=== PATIENT | male | born 1970 | race Hispanic/Latino ===

== ENCOUNTER → 2024-11-01 | Day surgery (SDC) | payer OTHER ==
[~2024-11-01] MED LIST: ACETAMINOPHEN 1000 MG/100 ML 0 ML IV ONE; DEXAMETHASONE SOD PHOS INJ 4 MG/ML SDV ONE; FENTANYL CITRATE/PF 100MCG/2 ML INJ ONE; FERROUS SULFAT325 MG PO; GLUCAGON FOR INJ 1 MG VIAL ONE; KETOROLAC TROMETHAMINE 30 MG/ML VIAL ONE; LIDOCAINE HCL 2% LOCAL INJ 5 ML SDV VIAL INJ ONE; METOCLOPRAMIDE HCL 10 MG/2ML VIAL ONE; ONDANSETRON HCL INJ 2MG/ML 2ML 2 MG/ML VIAL ONE; PHENYLEPHRINE HCL 1% 10 MG/ML VIAL ONE; PROPOFOL IV EMULSION 10 MG/ML 20 ML VIAL ONE; PROPOFOL IV EMULSION 50 ML IV ONE; ROCURONIUM BROMIDE 0 ML IV ONE; SEVOFLURANE INHAL SOLN 250 ML PEN BTL ONE; SODIUM CHLORIDE 0.9% INJ 10 ML VIAL ONE; SUCCINYLCHOLINE CHLORIDE 20 MG/ML 10ML VIAL ONE; SUGAMMADEX SODIUM 200 MG/2 ML VIAL IV ONE
[2024-11-01] MEDS: LACTATED RINGER'S 1,000 ML ONE (12:53)
[2024-11-01 15:59] VITALS: TEMP 98
[2024-11-01 16:30] VITALS: BP 110/73; PULSE 62; RESP 18; O2SAT 98
[2024-11-04 08:12] LABS: ENDOMYSIAL ANTIBODIES, IGA Negative (Negative)
[2024-11-04 08:47] LABS: IMMUNOGLOBULIN A 140 mg/dL (90-386); TISSUE TRANSGLUTAMINASE IGA AB <2 U/mL (0-3)
== END | disposition home or self-care (01) ==
LOC: OR 12:26
PROVIDERS: ATTEND Internal Medicine Gastroenterology
DX: D50.9 Iron deficiency anemia, unspecified (principal); Z86.0100 Personal history of colon polyps, unspecified; K29.50 Unspecified chronic gastritis without bleeding; B96.81 Helicobacter pylori [H. pylori] as the cause of diseases classified elsewhere; K20.90 Esophagitis, unspecified without bleeding; K57.30 Diverticulosis of large intestine without perforation or abscess without bleeding; R19.5 Other fecal abnormalities; K64.8 Other hemorrhoids; M19.90 Unspecified osteoarthritis, unspecified site
CPT/HCPCS: 43239; 45378; 82784; 83516; 86256; J1610; J2003; J2470; J2704 ×2; J2765; J3010; J7121; J0330; J1100; J1885; J2371; J2405

== ENCOUNTER → 2024-12-01 | Outpatient (REF) | payer OTHER ==
[~2024-12-01] MED LIST changes: -ACETAMINOPHEN 1000 MG/100 ML 0 ML IV ONE; -DEXAMETHASONE SOD PHOS INJ 4 MG/ML SDV ONE; -FENTANYL CITRATE/PF 100MCG/2 ML INJ ONE; -GLUCAGON FOR INJ 1 MG VIAL ONE; -KETOROLAC TROMETHAMINE 30 MG/ML VIAL ONE; -LIDOCAINE HCL 2% LOCAL INJ 5 ML SDV VIAL INJ ONE; -METOCLOPRAMIDE HCL 10 MG/2ML VIAL ONE; -ONDANSETRON HCL INJ 2MG/ML 2ML 2 MG/ML VIAL ONE; -PHENYLEPHRINE HCL 1% 10 MG/ML VIAL ONE; -PROPOFOL IV EMULSION 10 MG/ML 20 ML VIAL ONE; -PROPOFOL IV EMULSION 50 ML IV ONE; -ROCURONIUM BROMIDE 0 ML IV ONE; -SEVOFLURANE INHAL SOLN 250 ML PEN BTL ONE; -SODIUM CHLORIDE 0.9% INJ 10 ML VIAL ONE; -SUCCINYLCHOLINE CHLORIDE 20 MG/ML 10ML VIAL ONE; -SUGAMMADEX SODIUM 200 MG/2 ML VIAL IV ONE
== END ==
LOC: DX 09:20
PROVIDERS: ATTEND Nurse Practitioner
DX: D64.89 Other specified anemias (principal)
CPT/HCPCS: 74250